=== PATIENT | female | born 1945 ===

== ENCOUNTER → 2017-01-20 | Outpatient (CLI) | payer MEDICARE, OTHER ==
--- NOTE | 2017-01-20 15:58 | ECHOF ---
DATE OF PROCEDURE January 20, 2017 2D, M-mode, color flow and Doppler echocardiographic examinations were performed on this patient. The left atrium is normal in size. The left ventricle is normal in size. The left ventricle, including the septum, moves appropriately during systole and diastole. Overall ejection fraction is 75%. There is [id number] concentric left ventricular hypertrophy. The mitral valve opens appropriately and does not evidence stenosis or prolapse. There is mitral annular calcification noted. The aortic valve is sclerotic without being stenotic. There is trace tricuspid regurgitation. The tricuspid and pulmonic valves appear normal. There is mild diastolic dysfunction. No vegetations are seen on any valve. No intracavitary masses or thrombi are noted. There is no pericardial effusion. The right atrium and right ventricle, including inflow and outflow tracts, appear normal. Right ventricular function is normal. Aortic root is normal. CONCLUSION 1. Mild diastolic dysfunction. 2. Trace tricuspid regurgitation. 3. Sclerosis of the aortic valve. 4. Mitral annular calcification. 5. Moderate concentric left ventricular hypertrophy. 6. Normal LV function at 75%. MTDD
== END ==
LOC: IMA 09:12
PROVIDERS: ATTEND Internal Medicine Cardiovascular Disease
DX: I10 Essential (primary) hypertension (principal); I08.0 Rheumatic disorders of both mitral and aortic valves; I50.30 Unspecified diastolic (congestive) heart failure
CPT/HCPCS: 93306